=== PATIENT | female | born 1995 | race Caucasian/White ===

== ENCOUNTER 2024-04-19 18:05 | Observation (INO) ==
--- NOTE | 2024-04-19 18:53 | ED.ABDFE ---
HPI <Pro Groderian - Last Filed: 04/24/24 08:54> Time Seen Time Seen by Provider: 04/19/24 18:53 PCP Primary Care Physician: JOSEPH Complaint Doctors Chief Complaint Comments: 28-year-old female presents for evaluation. Patient has been having recurrent upper abdominal pain over the past 7 months, since the delivery of her last baby. Pain located in the right upper quadrant/epigastric region. It is sharp at times. Occurs with eating, sometimes occurs with not eating. Pain is worsened today, she has not eaten much of anything.. It is associated with nausea and vomiting today. She also has slight diarrhea today. Stools are brown. No report of fever or chills.. Pain is associated with diaphoresis. Denies upper respiratory symptoms, cough. Urine appears concentrated today.. Patient has been investigated in the recent past, had an ultrasound and HIDA scan of the gallbladder which were reportedly negative. No previous history of abdominal surgery. Did try Mounjaro, approximate 4 years ago for short time. Has not noticed significant change in weight gain. Has been on Lexapro for several years, no change in that. Is also on thyroid supplementation. Chief Complaint:: pt c/o abd pain x 7 months has had multiple er visit at [facility] had hida scan and us but pt wants to find out whats wrong with her ruq pain" Reviewed Nurses Notes Review: Yes Source History Provided: Patient Mode of arrival Mode of Arrival: Ambulatory Timing Onset of Chief Complaint: 04/19/24 PMH <Pro Groderian - Last Filed: 04/24/24 08:54> PMH Past Medical History: Yes Past Medical History: GERD, Hypertension and Hypothyroidism Past Surgical History: Yes Surgical History: Tonsillectomy Family History History of Family Medical Conditions: Yes Social History Does patient currently use any type of tobacco product: No Have you used tobacco products in the last 12 months: No Type of Tobacco Use: None Does any household member use tobacco: No Alcohol Use: None Do you use any recreational Drugs:: No Lives With: Family Lives Where: Home Infectious screening In the last 2 months have you had wt loss of >10#?: NO Have you had fever, night sweats or hemotysis?: No Have you traveled outside the country in the last 6 months?: No Isolation: Standard ROS <Pro Desai - Last Filed: 04/24/24 08:54> Review of Systems Constitutional: Weakness Eyes: No Symptoms Reported ENTM: No Symptoms Reported Respiratoy: No Symptoms Reported Cardiovascular: No Symptoms Reported Gastrointestinal/Abdominal: See HPI Genitourinary: No Symptoms Reported Neurological: Weakness Musculoskeletal: No Symptoms Reported Integumentary: No Symptoms Reported Hematologic/Lymphatic: No Symptoms Reported All Other Systems: Reviewed and Negative PE <Pro Desai - Last Filed: 04/24/24 08:54> Vital Signs Vitals: Vital Signs Temperature 97.6 F Pulse Rate 62 Respiratory Rate 18 Blood Pressure 171/72 O2 Sat by Pulse Oximetry 99 General General Appearance: Alert, In No Apparent Distress and Other (+ dry heaving) Eyes Eye exam: PERRL and EOMI ENT ENT Exam: Normal Oropharynx and Mucous Membranes Moist Neck Neck Exam: Normal Inspection and Full ROM; negative Tenderness Respiratory Respiratory Exam: Normal Lung Sounds Bilat; negative Accessory Muscle Use or Respiratory Distress Cardiovascular Cardiovascular Exam: Regular Rate, Normal Rhythm and Normal Heart Sounds Abdominal Exam Abdominal Exam: Normal Bowel Sounds, Soft and Tenderness (RUQ, epigastric region, mild guarding. ) Back Back Exam: Normal Inspection; negative (R) CVA Tenderness or (L) CVA Tenderness Extremeties Extremities Exam: Normal Inspection and Full ROM Neurologic Neurological Exam: Alert, Oriented X3 and CN II-XII Intact; negative Motor Sensory Deficit Skin Skin Exam: Warm and Dry <Lizetteigor Ling - Last Filed: 04/19/24 22:24> Vital Signs Vitals: Vital Signs Temperature 97.6 F Pulse Rate 62 Respiratory Rate 18 Blood Pressure 171/72 O2 Sat by Pulse Oximetry 99 COURSE <Pro Desai - Last Filed: 04/24/24 08:54> Treatment Treatment: 28-year-old female with recurrent upper abdominal pain, nausea/vomiting over the past several months. Workup initiated. Patient given IV fluids, IV Protonix/Zofran. Patient will be signed over to my relief physician. <Lizette Ling - Last Filed: 04/19/24 22:24> Consultation Call Returned: 21:57 (Dr Spangler accepts admission.) ROR <Pro Desai - Last Filed: 04/24/24 08:54> Labs Reviewed 04/21/24 08:00 04/21/24 08:00 Laboratory: WBC 9.6 X10^3/uL (3.6-10.0) 04/19/24 19:42 RBC 5.35 X10^6/uL (3.5-5.4) 04/19/24 19:42 Hgb 12.1 g/dL (12.0-16.0) 04/19/24 19:42 Hct 38.4 % (36.0-47.0) 04/19/24 19:42 MCV 71.7 fL (80.0-100.0) L 04/19/24 19:42 MCH 22.7 pg (27.0-34.0) L 04/19/24 19:42 MCHC 31.7 g/dL (33.0-35.0) L 04/19/24 19:42 RDW 17.5 % (11.6-16.5) H 04/19/24 19:42 Plt Count 291 X10^3/uL (150.0-450.0) 04/19/24 19:42 Plt Count Comment Adequate (ADEQUATE) 04/19/24 19:42 MPV 8.9 fL (7.4-11.0) 04/19/24 19:42 Neut % (Auto) 76.9 % (42.0-75.0) H 04/19/24 19:42 Lymph % (Auto) 14.8 % (21.0-51.0) L 04/19/24 19:42 [place] % (Auto) 6.2 % (0.0-13.0) 04/19/24 19:42 Eos % (Auto) 1.2 % (0.9-2.9) 04/19/24 19:42 Baso % (Auto) 0.9 % (0.2-1.0) 04/19/24 19:42 Neut # (Auto) 7.3 x10^3/uL (2.2-4.8) H 04/19/24 19:42 Lymph # (Auto) 1.4 X10^3/uL (1.3-2.9) 04/19/24 19:42 [place] # (Auto) 0.6 x10^3/uL (0.3-0.8) 04/19/24 19:42 Eos # (Auto) 0.1 x10^3/uL (0.0-0.2) 04/19/24 19:42 Baso # (Auto) 0.1 X10^3/uL (0.0-0.1) 04/19/24 19:42 Absolute Nucleated RBC 0.2 /100WBC 04/19/24 19:42 Plt Morphology Comment Normal (NORMAL) 04/19/24 19:42 RBC Morphology Abnormal (NORMAL) A 04/19/24 19:42 Hypochromasia 2+ A 04/19/24 19:42 Anisocytosis Slight A 04/19/24 19:42 Microcytosis Slight A 04/19/24 19:42 Sodium 141 mmol/L (136-145) 04/19/24 19:42 Corrected Sodium TNP 04/19/24 19:42 Potassium 3.6 mmol/L (3.5-5.1) 04/19/24 19:42 Chloride 102 mmol/L (98-107) 04/19/24 19:42 Carbon Dioxide 30.4 mmol/L (21-32) 04/19/24 19:42 BUN 9 mg/dL (7-18) 04/19/24 19:42 Creatinine 0.93 mg/dL (0.55-1.02) 04/19/24 19:42 Est GFR (MDRD) Af Amer > 60 (>60) 04/19/24 19:42 Est GFR (MDRD) Non-Af > 60 (>60) 04/19/24 19:42 Glucose 97 mg/dL (65-99) 04/19/24 19:42 Calcium 9.0 mg/dL (8.5-10.1) 04/19/24 19:42 Corrected Calcium TNP 04/19/24 19:42 Total Bilirubin 3.60 mg/dL (0.2-1.0) H 04/19/24 19:42 AST 556 Units/L (15-37) H 04/19/24 19:42 ALT 547 Units/L (12-78) H 04/19/24 19:42 Alkaline Phosphatase 141 Units/L (46-116) H 04/19/24 19:42 Total Protein 7.6 g/dL (6.4-8.2) 04/19/24 19:42 Albumin 3.7 g/dL (3.4-5.0) 04/19/24 19:42 Globulin 3.9 g/dL (2.5-4.5) 04/19/24 19:42 Albumin/Globulin Ratio 0.9 Ratio (1.1-2.1) L 04/19/24 19:42 Amylase 16 Units/L (25-115) L 04/19/24 19:42 Lipase 19 Units/L (16-77) 04/19/24 19:42 HCG, Qual Negative <10 mIU/mL 04/19/24 19:42 Specimen Type Clean catch urine 04/19/24 19:40 Urine Color Nubia (YELLOW) 04/19/24 19:40 Urine Appearance Hazy (CLEAR) 04/19/24 19:40 Urine pH 7.0 (5.0 - 8.0) 04/19/24 19:40 Ur Specific [place] 1.010 (1.000-1.030) 04/19/24 19:40 Urine Protein 2+ (NEGATIVE) 04/19/24 19:40 Urine Glucose (UA) Negative (NEGATIVE) 04/19/24 19:40 Urine Ketones 1+ (NEGATIVE) 04/19/24 19:40 Urine Blood Negative (NEGATIVE) 04/19/24 19:40 Urine Nitrite Negative (NEGATIVE) 04/19/24 19:40 Urine Bilirubin 2+ (NEGATIVE) 04/19/24 19:40 Urine Urobilinogen 2+ (NORMAL) 04/19/24 19:40 Ur Leukocyte Esterase 2+ (NEGATIVE) 04/19/24 19:40 Urine RBC 0-2 /HPF (0-3) 04/19/24 19:40 Urine WBC 10-20 /HPF (0-5) A 04/19/24 19:40 Ur Squamous Epith Cells Numerous /HPF (NEGATIVE) 04/19/24 19:40 Urine Bacteria 3+ /HPF (NEGATIVE) 04/19/24 19:40 Urine Mucus Numerous /HPF (NEGATIVE) 04/19/24 19:40 Ur Culture Indicated? No/not indicated 04/19/24 19:40 <Lizette Ling - Last Filed: 04/19/24 22:24> Labs Reviewed Laboratory Results Reviewed?: Yes Laboratory: WBC 9.6 X10^3/uL (3.6-10.0) 04/19/24 19:42 RBC 5.35 X10^6/uL (3.5-5.4) 04/19/24 19:42 Hgb 12.1 g/dL (12.0-16.0) 04/19/24 19:42 Hct 38.4 % (36.0-47.0) 04/19/24 19:42 MCV 71.7 fL (80.0-100.0) L 04/19/24 19:42 MCH 22.7 pg (27.0-34.0) L 04/19/24 19:42 MCHC 31.7 g/dL (33.0-35.0) L 04/19/24 19:42 RDW 17.5 % (11.6-16.5) H 04/19/24 19:42 Plt Count 291 X10^3/uL (150.0-450.0) 04/19/24 19:42 Plt Count Comment Adequate (ADEQUATE) 04/19/24 19:42 MPV 8.9 fL (7.4-11.0) 04/19/24 19:42 Neut % (Auto) 76.9 % (42.0-75.0) H 04/19/24 19:42 Lymph % (Auto) 14.8 % (21.0-51.0) L 04/19/24 19:42 [place] % (Auto) 6.2 % (0.0-13.0) 04/19/24 19:42 Eos % (Auto) 1.2 % (0.9-2.9) 04/19/24 19:42 Baso % (Auto) 0.9 % (0.2-1.0) 04/19/24 19:42 Neut # (Auto) 7.3 x10^3/uL (2.2-4.8) H 04/19/24 19:42 Lymph # (Auto) 1.4 X10^3/uL (1.3-2.9) 04/19/24 19:42 [place] # (Auto) 0.6 x10^3/uL (0.3-0.8) 04/19/24 19:42 Eos # (Auto) 0.1 x10^3/uL (0.0-0.2) 04/19/24 19:42 Baso # (Auto) 0.1 X10^3/uL (0.0-0.1) 04/19/24 19:42 Absolute Nucleated RBC 0.2 /100WBC 04/19/24 19:42 Plt Morphology Comment Normal (NORMAL) 04/19/24 19:42 RBC Morphology Abnormal (NORMAL) A 04/19/24 19:42 Hypochromasia 2+ A 04/19/24 19:42 Anisocytosis Slight A 04/19/24 19:42 Microcytosis Slight A 04/19/24 19:42 Sodium 141 mmol/L (136-145) 04/19/24 19:42 Corrected Sodium TNP 04/19/24 19:42 Potassium 3.6 mmol/L (3.5-5.1) 04/19/24 19:42 Chloride 102 mmol/L (98-107) 04/19/24 19:42 Carbon Dioxide 30.4 mmol/L (21-32) 04/19/24 19:42 BUN 9 mg/dL (7-18) 04/19/24 19:42 Creatinine 0.93 mg/dL (0.55-1.02) 04/19/24 19:42 Est GFR (MDRD) Af Amer > 60 (>60) 04/19/24 19:42 Est GFR (MDRD) Non-Af > 60 (>60) 04/19/24 19:42 Glucose 97 mg/dL (65-99) 04/19/24 19:42 Calcium 9.0 mg/dL (8.5-10.1) 04/19/24 19:42 Corrected Calcium TNP 04/19/24 19:42 Total Bilirubin 3.60 mg/dL (0.2-1.0) H 04/19/24 19:42 AST 556 Units/L (15-37) H 04/19/24 19:42 ALT 547 Units/L (12-78) H 04/19/24 19:42 Alkaline Phosphatase 141 Units/L (46-116) H 04/19/24 19:42 Total Protein 7.6 g/dL (6.4-8.2) 04/19/24 19:42 Albumin 3.7 g/dL (3.4-5.0) 04/19/24 19:42 Globulin 3.9 g/dL (2.5-4.5) 04/19/24 19:42 Albumin/Globulin Ratio 0.9 Ratio (1.1-2.1) L 04/19/24 19:42 Amylase 16 Units/L (25-115) L 04/19/24 19:42 Lipase 19 Units/L (16-77) 04/19/24 19:42 HCG, Qual Negative <10 mIU/mL 04/19/24 19:42 Specimen Type Clean catch urine 04/19/24 19:40 Urine Color Nubia (YELLOW) 04/19/24 19:40 Urine Appearance Hazy (CLEAR) 04/19/24 19:40 Urine pH 7.0 (5.0 - 8.0) 04/19/24 19:40 Ur Specific [place] 1.010 (1.000-1.030) 04/19/24 19:40 Urine Protein 2+ (NEGATIVE) 04/19/24 19:40 Urine Glucose (UA) Negative (NEGATIVE) 04/19/24:40 Urine Ketones 1+ (NEGATIVE) 04/19/24 19:40 Urine Blood Negative (NEGATIVE) 04/19/24:40 Urine Nitrite Negative (NEGATIVE) 04/19/24 19:40 Urine Bilirubin 2+ (NEGATIVE) 04/19/24 19:40 Urine Urobilinogen 2+ (NORMAL) 04/19/24 19:40 Ur Leukocyte Esterase 2+ (NEGATIVE) 04/19/24 19:40 Urine RBC 0-2 /HPF (0-3) 04/19/24 19:40 Urine WBC 10-20 /HPF (0-5) A 04/19/24 19:40 Ur Squamous Epith Cells Numerous /HPF (NEGATIVE) 04/19/24 19:40 Urine Bacteria 3+ /HPF (NEGATIVE) 04/19/24 19:40 Urine Mucus Numerous /HPF (NEGATIVE) 04/19/24 19:40 Ur Culture Indicated? No/not indicated 04/19/24 19:40 Other Results Comments: 28 y/o with seven months of intermittent epigastric pain, nausea and vomiting; US and HIDA about four months ago reportedly wnl but symptoms persist; significantly elevated lfts and bilirubin; unable to get us tonight; surgeon is agreeable to admission for observation. XRAY XRAY Interpreted by: Radiologist X-ray Results: abd/pelvis w/iv: 1. Cholelithiasis. There is questionably some gallbladder wall thickening. Consider correlation with right upper quadrant ultrasound. 2. Splenomegaly. Opioid <Pro Lloyd - Last Filed: 04/24/24 08:54> Opioid Risk Tool Total: 0 Total Score Risk Category: Low Risk Copyright: Bucky ANDUJAR predicting aberrant behaviors <Lizette Ling - Last Filed: 04/19/24 22:24> Opioid Risk Tool Total: 0 Total Score Risk Category: Low Risk Discharge Plan Diagnosis Discharge Problem: Cholelithiasis, Elevated LFTs, Total bilirubin, elevated, Nausea & vomiting, Acute epigastric pain, Splenomegaly Discharge Plan Patient Disposition: 09 ADMITTED INPATIENT Condition: Stable Prescription drug monitoring program results: PDMP reviewed and no concerns identified Orders to Discharge Patient Discharge Orders: Discharge (Routine); Ordered 04/21/24 Ordered By: Laureano Spangler
[2024-04-19] MEDS: NS 1,000 ML IV 1,000 ML IV ONE (19:48)
[2024-04-19] MEDS: PROTONIX INJ 40 MG VIAL IVP ONE (19:49)
[2024-04-19] MEDS: ZOFRAN INJ 4 MG VIAL IVP ONE (19:49)
[2024-04-19 19:50] LABS: BASOPHILS # (AUTO) 0.1 X10^3/uL (0.0-0.1); BASOPHILS % (AUTO) 0.9 % (0.2-1.0); EOSINOPHILS # (AUTO) 0.1 x10^3/uL (0.0-0.2); EOSINOPHILS % (AUTO) 1.2 % (0.9-2.9); HEMATOCRIT 38.4 % (36.0-47.0); HEMOGLOBIN 12.1 g/dL (12.0-16.0); LYMPHOCYTES # (AUTO) 1.4 X10^3/uL (1.3-2.9); LYMPHOCYTES % (AUTO) 14.8 % (21.0-51.0); MEAN CORPUSCULAR HEMOGLOBIN 22.7 pg (27.0-34.0); MEAN CORPUSCULAR HGB CONC 31.7 g/dL (33.0-35.0); MEAN CORPUSCULAR VOLUME 71.7 fL (80.0-100.0); MEAN PLATELET VOLUME 8.9 fL (7.4-11.0); MONOCYTES # (AUTO) 0.6 x10^3/uL (0.3-0.8); MONOCYTES % (AUTO) 6.2 % (0.0-13.0); NEUTROPHILS # (AUTO) 7.3 x10^3/uL (2.2-4.8); NEUTROPHILS % (AUTO) 76.9 % (42.0-75.0); PLATELET COUNT 291 X10^3/uL (150.0-450.0); RED BLOOD COUNT 5.35 X10^6/uL (3.5-5.4); RED CELL DISTRIBUTION WIDTH 17.5 % (11.6-16.5); WHITE BLOOD COUNT 9.6 X10^3/uL (3.6-10.0)
[2024-04-19 19:51] LABS: BILIRUBIN,URINE 2+ (NEGATIVE); BLOOD/HEMOGLOBIN,URINE NEGATIVE (NEGATIVE); GLUCOSE, URINE NEGATIVE (NEGATIVE); KETONES,URINE 1+ (NEGATIVE); LEUKOCYTE ESTERASE ,URINE 2+ (NEGATIVE); NITRITES,URINE NEGATIVE (NEGATIVE); PROTEIN,URINE 2+ (NEGATIVE); UROBILINOGEN,URINE 2+ (NORMAL)
[2024-04-19 20:02] LABS: SERUM PREGNANCY TEST, QUAL NEGATIVE <10 mIU/mL
[2024-04-19 20:05] LABS: ALANINE AMINOTRANSFERASE 547 Units/L (12-78); ALBUMIN 3.7 g/dL (3.4-5.0); ALKALINE PHOSPHATASE 141 Units/L (46-116); AMYLASE 16 Units/L (25-115); ASPARTATE AMINO TRANSFERASE 556 Units/L (15-37); BLOOD UREA NITROGEN 9 mg/dL (7-18); CARBON DIOXIDE 30.4 mmol/L (21-32); CHLORIDE 102 mmol/L (98-107); CREATININE 0.93 mg/dL (0.55-1.02); GLUCOSE 97 mg/dL (65-99); LIPASE 19 Units/L (16-77); POTASSIUM 3.6 mmol/L (3.5-5.1); SODIUM 141 mmol/L (136-145); TOTAL PROTEIN 7.6 g/dL (6.4-8.2); eGFR NON BLACK RACES > 60 (>60)
[2024-04-19 20:18] LABS: ANISOCYTOSIS SLIGHT; HYPOCHROMASIA 2+; MICROCYTOSIS SLIGHT; PLATELET MORPHOLOGY COMMENT NORMAL (NORMAL)
[2024-04-19 21:15] LABS: APPEARANCE,URINE HAZY (CLEAR); COLOR,URINE AMBER (YELLOW)
[2024-04-19 21:18] LABS: BACTERIA,URINE 3+ /HPF (NEGATIVE); RBC,URINE 0-2 /HPF (0-3); SQUAMOUS EPITHELIAL CELL,UR NUMEROUS /HPF (NEGATIVE)
--- NOTE | 2024-04-19 21:37 | CT ---
EXAM: ABDCMEN/PELVIS WITH CON HISTORY: epigastric pain; COMPARISON: None. TECHNIQUE: Following the intravenous administration of iodinated contrast, spiral CT imaging was performed throu gh the abdomen and pelvis and axial, coronal, and sagittal CT images were generated. FINDINGS: The lung bases are clear without effusion. The heart size is normal. The liver is normal. The gall bladder is somewhat distended there are some stones in the fundus and questionably some wall thickeni ng. No ductal stone is identified. Pancreas is unremarkable. Spleen is enlarged at 15.6 cm. The a drenal glands are normal. The kidneys are normal in size and enhancement without mass or stone. The stomach and small bowel loops are normal. The appendix is normal. There are reactive sized mesente daiana lymph nodes. Colon is grossly unremarkable. Urinary bladder and uterus are normal and there is no adnexal mass. There are reactive sized mesenteric and retroperitoneal lymph nodes. IMPRESSION: 1. Cholelithiasis. There is questionably some gallbladder wall thickening. Consider correlation wit h right upper quadrant ultrasound. 2. Splenomegaly. THIS IS AN ELECTRONICALLY VERIFIED FINAL REPORT 04/19/2024 9:34 PM - Electronically signed by Roby Barker MD
[2024-04-19] MEDS ORDERED: ZOFRAN INJ 4 MG VIAL IVP PRN (21:58)
[2024-04-19] MEDS ORDERED: MORPHINE SULFATE INJ 2 MG INJ IVP PRN (21:58)
[2024-04-19] MEDS: NS 1,000 ML IV 1,000 ML IV SCH (22:06)
[2024-04-19] MEDS: LEVAQUIN PREMIX IV 500 MG 500 MG/100 ML BAG IV ONE ×2 (22:06→23:07)
[2024-04-19] MEDS: PROTONIX INJ 40 MG VIAL ONE (23:08)
[2024-04-19] MEDS: OMNIPAQUE 350 mg/mL 100 mL BTL 100 ML ONE (23:09)
[2024-04-19] MEDS: NS 1,000 ML IV 1,000 ML ONE ×2 (23:09)
[2024-04-19] MEDS: ZOFRAN INJ 4 MG VIAL ONE (23:09)
[2024-04-19 23:21] VITALS: BMI 56.3
[2024-04-20] MEDS: NS 1,000 ML IV 1,000 ML IV SCH (00:25)
[2024-04-20 05:35] LABS: BASOPHILS % (AUTO) 0.6 % (0.2-1.0); EOSINOPHILS # (AUTO) 0.2 x10^3/uL (0.0-0.2); EOSINOPHILS % (AUTO) 2.4 % (0.9-2.9); HEMATOCRIT 33.5 % (36.0-47.0); HEMOGLOBIN 10.6 g/dL (12.0-16.0); LYMPHOCYTES # (AUTO) 1.8 X10^3/uL (1.3-2.9); LYMPHOCYTES % (AUTO) 27.8 % (21.0-51.0); MEAN CORPUSCULAR HEMOGLOBIN 22.9 pg (27.0-34.0); MEAN CORPUSCULAR HGB CONC 31.7 g/dL (33.0-35.0); MEAN PLATELET VOLUME 9.5 fL (7.4-11.0); MONOCYTES # (AUTO) 0.4 x10^3/uL (0.3-0.8); MONOCYTES % (AUTO) 5.5 % (0.0-13.0); NEUTROPHILS # (AUTO) 4.2 x10^3/uL (2.2-4.8); NEUTROPHILS % (AUTO) 63.7 % (42.0-75.0); PLATELET COUNT 219 X10^3/uL (150.0-450.0); RED BLOOD COUNT 4.64 X10^6/uL (3.5-5.4); RED CELL DISTRIBUTION WIDTH 17.7 % (11.6-16.5); WHITE BLOOD COUNT 6.6 X10^3/uL (3.6-10.0)
[2024-04-20 05:54] LABS: ANISOCYTOSIS SLIGHT; HYPOCHROMASIA 1+; MICROCYTOSIS SLIGHT; PLATELET MORPHOLOGY COMMENT NORMAL (NORMAL)
[2024-04-20 05:56] LABS: ALANINE AMINOTRANSFERASE 520 Units/L (12-78); ALBUMIN 2.9 g/dL (3.4-5.0); ALKALINE PHOSPHATASE 131 Units/L (46-116); ASPARTATE AMINO TRANSFERASE 422 Units/L (15-37); BLOOD UREA NITROGEN 8 mg/dL (7-18); CALCIUM 8.3 mg/dL (8.5-10.1); CARBON DIOXIDE 28.3 mmol/L (21-32); CHLORIDE 106 mmol/L (98-107); COR CA(FOR HYPOALB) 9.2 mg/dL (8.5-10.1); CREATININE 0.83 mg/dL (0.55-1.02); GLUCOSE 85 mg/dL (65-99); POTASSIUM 3.6 mmol/L (3.5-5.1); SODIUM 141 mmol/L (136-145); TOTAL PROTEIN 6.2 g/dL (6.4-8.2); eGFR NON BLACK RACES > 60 (>60)
[2024-04-20] MEDS ORDERED: CONSULT PHARMACY - POTASSIUM & MAGNESIUM XX SCH (07:00)
[2024-04-20] MEDS: CONSULT PHARMACY - POTASSIUM & MAGNESIUM XX SCH (08:06)
[2024-04-20] MEDS ORDERED: K-RIDER 10 MEQ/100 ML WATER 10 MEQ/100 ML BAG IV SCH (09:00)
[2024-04-20] MEDS: NS + KCL 20 MEQ/L 1,000 ML IV SCH (09:30)
[2024-04-20] MEDS: NS 100 ML IV 100 ML ONE (15:20)
[2024-04-20] MEDS: LR 1,000 ML IV 1,000 ML IV ONE (15:20)
[2024-04-20] MEDS: ANCEF VIAL 1 GRAM ONE (15:20)
--- NOTE | 2024-04-20 15:22 | DR.H&P ---
H&P History & Physical for Day of: H&P Date: 04/20/24 Chief Complaint Chief Complaint: Right upper quadrant pain, nausea and vomiting History of Present Illness History of Present Illness: 28 year old female, morbidly obese with 7-month history of significant right upper quadrant and epigastric pain. This has occurred since delivery of her last baby about 7 months ago. She has been evaluated with a HIDA scan in [place], [place] which was reported as negative. She was seen our emergency room and CT scan consistent with gallstones with dilated gallbladder and possible gallbladder wall thickening . On admission her liver tests are elevated as was her total Herb Jacob to 3.6. CT scan did not show any evidence of dilated common duct or common duct Stones. Bilirubin has since decreased to 3.0. Past Medical History Past Medical History: GERD, Hypertension and Hypothyroidism Past Surgical History Surgical History: Tonsillectomy Family History Family Medical History: Hypertension Social History Does patient currently use any type of tobacco product: No Have you used tobacco products in the last 12 months: No Type of Tobacco Use: None Does any household member use tobacco: No Alcohol Use: None Drug Use: None Medications Home Medications: Home Medications Medication Instructions Recorded Confirmed Type escitalopram oxalate 10 mg tablet 10 mg PO QDAY 04/19/24 04/19/24 History labetalol 100 mg tablet 100 mg PO QDAY 04/19/24 04/19/24 History levothyroxine 50 mcg tablet 50 mcg PO QDAY 04/19/24 04/19/24 History montelukast 10 mg tablet 10 mg PO QDAY 04/19/24 04/19/24 History Allergies Allergies Allergy/AdvReac Type Severity Reaction Status Date / Time No Known Allergies Allergy Verified 04/19/24 21:33 Labs 04/20/24 04:03 04/20/24 04:03 Labs: Laboratory WBC 6.6 X10^3/uL (3.6-10.0) 04/20/24 04:03 RBC 4.64 X10^6/uL (3.5-5.4) 04/20/24 04:03 Hgb 10.6 g/dL (12.0-16.0) L 04/20/24 04:03 Hct 33.5 % (36.0-47.0) L 04/20/24 04:03 MCV 72.0 fL (80.0-100.0) L 04/20/24 04:03 MCH 22.9 pg (27.0-34.0) L 04/20/24 04:03 MCHC 31.7 g/dL (33.0-35.0) L 04/20/24 04:03 RDW 17.7 % (11.6-16.5) H 04/20/24 04:03 Plt Count 219 X10^3/uL (150.0-450.0) 04/20/24 04:03 Plt Count Comment Adequate (ADEQUATE) 04/20/24 04:03 MPV 9.5 fL (7.4-11.0) 04/20/24 04:03 Neut % (Auto) 63.7 % (42.0-75.0) 04/20/24 04:03 Lymph % (Auto) 27.8 % (21.0-51.0) 04/20/24 04:03 [place] % (Auto) 5.5 % (0.0-13.0) 04/20/24 04:03 Eos % (Auto) 2.4 % (0.9-2.9) 04/20/24 04:03 Baso % (Auto) 0.6 % (0.2-1.0) 04/20/24 04:03 Neut # (Auto) 4.2 x10^3/uL (2.2-4.8) 04/20/24 04:03 Lymph # (Auto) 1.8 X10^3/uL (1.3-2.9) 04/20/24 04:03 [place] # (Auto) 0.4 x10^3/uL (0.3-0.8) 04/20/24 04:03 Eos # (Auto) 0.2 x10^3/uL (0.0-0.2) 04/20/24 04:03 Baso # (Auto) 0.0 X10^3/uL (0.0-0.1) 04/20/24 04:03 Absolute Nucleated RBC 0.0 /100WBC 04/20/24 04:03 Plt Morphology Comment Normal (NORMAL) 04/20/24 04:03 RBC Morphology Abnormal (NORMAL) A 04/20/24 04:03 Hypochromasia 1+ A 04/20/24 04:03 Anisocytosis Slight A 04/20/24 04:03 Microcytosis Slight A 04/20/24 04:03 Sodium 141 mmol/L (136-145) 04/20/24 04:03 Corrected Sodium TNP 04/20/24 04:03 Potassium 3.6 mmol/L (3.5-5.1) 04/20/24 04:03 Chloride 106 mmol/L (98-107) 04/20/24 04:03 Carbon Dioxide 28.3 mmol/L (21-32) 04/20/24 04:03 BUN 8 mg/dL (7-18) 04/20/24 04:03 Creatinine 0.83 mg/dL (0.55-1.02) 04/20/24 04:03 Est GFR (MDRD) Af Amer > 60 (>60) 04/20/24 04:03 Est GFR (MDRD) Non-Af > 60 (>60) 04/20/24 04:03 Glucose 85 mg/dL (65-99) 04/20/24 04:03 Calcium 8.3 mg/dL (8.5-10.1) L 04/20/24 04:03 Corrected Calcium 9.2 mg/dL (8.5-10.1) 04/20/24 04:03 Magnesium 2.1 mg/dL (2.0-2.9) 04/20/24 04:03 Total Bilirubin 3.00 mg/dL (0.2-1.0) H 04/20/24 04:03 AST 422 Units/L (15-37) H 04/20/24 04:03 ALT 520 Units/L (12-78) H 04/20/24 04:03 Alkaline Phosphatase 131 Units/L (46-116) H 04/20/24 04:03 Total Protein 6.2 g/dL (6.4-8.2) L 04/20/24 04:03 Albumin 2.9 g/dL (3.4-5.0) L 04/20/24 04:03 Globulin 3.3 g/dL (2.5-4.5) 04/20/24 04:03 Albumin/Globulin Ratio 0.9 Ratio (1.1-2.1) L 04/20/24 04:03 Amylase 16 Units/L (25-115) L 04/19/24 19:42 Lipase 19 Units/L (16-77) 04/19/24 19:42 HCG, Qual Negative <10 mIU/mL 04/19/24 19:42 Specimen Type Clean catch urine 04/19/24 19:40 Urine Color [place]ubia (YELLOW) 04/19/24 19:40 Urine Appearance Hazy (CLEAR) 04/19/24 19:40 Urine pH 7.0 (5.0 - 8.0) 04/19/24 19:40 Ur Specific [place] 1.010 (1.000-1.030) 04/19/24 19:40 Urine Protein 2+ (NEGATIVE) 04/19/24 19:40 Urine Glucose (UA) Negative (NEGATIVE) 04/19/24 19:40 Urine Ketones 1+ (NEGATIVE) 04/19/24 19:40 Urine Blood Negative (NEGATIVE) 04/19/24 19:40 Urine Nitrite Negative (NEGATIVE) 04/19/24 19:40 Urine Bilirubin 2+ (NEGATIVE) 04/19/24 19:40 Urine Urobilinogen 2+ (NORMAL) 04/19/24 19:40 Ur Leukocyte Esterase 2+ (NEGATIVE) 04/19/24 19:40 Urine RBC 0-2 /HPF (0-3) 04/19/24 19:40 Urine WBC 10-20 /HPF (0-5) A 04/19/24 19:40 Ur Squamous Epith Cells Numerous /HPF (NEGATIVE) 04/19/24 19:40 Urine Bacteria 3+ /HPF (NEGATIVE) 04/19/24 19:40 Urine Mucus Numerous /HPF (NEGATIVE) 04/19/24 19:40 Ur Culture Indicated? No/not indicated 04/19/24 19:40 Review of Systems Constitutional: See HPI Eyes: Other (No obvious icterus ) ENT: No Symptoms Reported Respiratory: No Symptoms Reported Cardiovascular: No Symptoms Reported Gastrointestinal: See HPI Genitourinary: No Symptoms Reported Musculoskeletal: No Symptoms Reported Skin: No Symptoms Reported Neurological: No Symptoms Reported Physical Exam Vital Signs: Vital Signs Temperature 98.5 F Pulse Rate 62 Pulse Rate 46 Pulse Rate 46 Pulse Rate 48 Pulse Rate 54 Pulse Rate 59 Pulse Rate 58 Pulse Rate 48 Pulse Rate 57 Pulse Rate 55 Pulse Rate 50 Respiratory Rate 18 Respiratory Rate 18 Respiratory Rate 18 Respiratory Rate 19 Respiratory Rate 18 Respiratory Rate 14 Respiratory Rate 23 Respiratory Rate 14 Respiratory Rate 13 Respiratory Rate 19 Respiratory Rate 18 Blood Pressure 138/64 Blood Pressure 108/63 Blood Pressure 123/61 Blood Pressure 133/64 Blood Pressure 113/55 Blood Pressure 127/61 O2 Sat by Pulse Oximetry 100 O2 Sat by Pulse Oximetry 100 O2 Sat by Pulse Oximetry 100 O2 Sat by Pulse Oximetry 100 O2 Sat by Pulse Oximetry 100 O2 Sat by Pulse Oximetry 100 O2 Sat by Pulse Oximetry 100 O2 Sat by Pulse Oximetry 100 O2 Sat by Pulse Oximetry 99 O2 Sat by Pulse Oximetry 99 O2 Sat by Pulse Oximetry 99 Oriented: Normal, Time, Person and Place Eyes: Normal Ear: Normal Nose: Normal Throat: Normal Respiratory: Clear Throughout Cardiovascular: Normal : Normal Auscultation: Bowel Sounds: Normal Palpation: Normal Tenderness: RUQ (mild) Skin: Normal Musculoskeletal: Normal Psychiatric: Normal Mood Description: Calm Affect: Normal Speech Pattern: Clear and Appropriate Assessment/Plan (1) Cholelithiasis: Status: Acute Plan: plan laparoscopic cystectomy and cholangiogram . Risk and benefits discussed with the patient including the small percentage of having to convert to an open operation and the 1 in 2000 chance of bile duct injury in my hands. she understands and agrees to proceed . (2) Elevated LFTs: Status: Acute Plan: Cholangiogram, treat appropriately and follow (3) Total bilirubin, elevated: Status: Acute Plan: as above (4) Nausea & vomiting: Status: Acute Plan: treat symptomatically (5) Hypothyroid: Status: Acute Plan: home medications (6) GERD (gastroesophageal reflux disease): Status: Acute Plan: PO Protonix (7) Essential (primary) hypertension: Status: Acute Plan: home medications Review H&P Reviewed: Yes Patient was examined?: Yes
[2024-04-20] MEDS ORDERED: REGLAN INJ 10 MG VIAL IVP PRN (15:23)
[2024-04-20] MEDS ORDERED: BARHEMSYS INJ IVP PRN (15:23)
[2024-04-20] MEDS ORDERED: ZOFRAN INJ 4 MG VIAL IVP PRN (15:23)
[2024-04-20] MEDS ORDERED: BENADRYL INJ 50 MG VIAL IVP PRN (15:23)
[2024-04-20] MEDS: PRECEDEX INJ VIAL ONE (15:30)
[2024-04-20] MEDS ORDERED: SUPRANE ONE (15:30)
[2024-04-20] MEDS: FENTANYL VIAL INJ 250 mcg ONE (15:30)
[2024-04-20] MEDS: ZEMURON 100 MG VIAL ONE (15:30)
[2024-04-20] MEDS: PEPCID 20 MG VIAL ONE (15:30)
[2024-04-20] MEDS: ROBINUL ONE (15:30)
[2024-04-20] MEDS: DECADRON INJ ONE (15:30)
[2024-04-20] MEDS: DIPRIVAN VIAL 20 ML ONE (15:30)
[2024-04-20] MEDS ORDERED: XYLOCAINE 2 % (PLAIN) ONE (15:30)
[2024-04-20] MEDS: QUELICIN (OR ANECTINE) ONE (15:30)
[2024-04-20] MEDS: VERSED ONE (15:30)
[2024-04-20] MEDS: MAGNESIUM SULFATE 50% INJ VIAL ONE (15:30)
[2024-04-20] MEDS: ZOFRAN INJ 4 MG VIAL ONE ×2 (15:30→18:09)
[2024-04-20] MEDS: VISIPAQUE 50 ML ONE (15:50)
[2024-04-20] MEDS: BRIDION ONE (16:02)
[2024-04-20] MEDS: GLUCAGEN ONE (16:33)
[2024-04-20] MEDS: DILAUDID INJ IVP PRN (17:23)
--- NOTE | 2024-04-20 17:23 | OR.IMMED ---
IMMEDIATE POST-OP NOTE Immediate Post-Op Note Date of surgery/procedure: 04/20/24 Pre-Op Diagnosis: Cholelithiasis ,cholecystitis, possible common bile duct stone Post-Op Diagnosis: same Procedure: laparoscopic cystectomy, laparoscopic cholangiogram, this is a difficult case secondary to a morBID obesity with BMI of greater than 57 Description of Procedure: see dictation Surgeon/Assembler Gold Frame: Crys Findings: inflamed, large gallbladder with multiple Stones. cholangiogram showed no emptying into the bowel with possible distal common duct stone with obstr uction. Patient will be maintained on antibiotics and will require MRCP, possible ERCP, YARELY drain left in place Specimens Removed: ministerio Estimated Blood Loss: < 100cc Complications: none Progress Notes: to PACU then to her room. Continue antibiotics. Drain in place. will schedule MRCP as outpatient
[2024-04-20] MEDS: REGLAN INJ 10 MG VIAL ONE (18:09)
[2024-04-20] MEDS: MARCAINE/EPINEPHRINE ONE (18:09)
[2024-04-20] MEDS: DILAUDID INJ ONE (18:09)
[2024-04-20] MEDS: ZOFRAN INJ 4 MG VIAL IVP PRN (18:34)
[2024-04-20] MEDS: CIPRO TAB 500 MG PO SCH (20:08)
[2024-04-20] MEDS: PERCOCET TAB 5/325 MG PO PRN (20:09)
[2024-04-21] MEDS: MORPHINE SULFATE INJ 2 MG INJ IVP PRN (01:46)
[2024-04-21 08:21] LABS: BASOPHILS # (AUTO) 0.1 X10^3/uL (0.0-0.1); BASOPHILS % (AUTO) 1.5 % (0.2-1.0); EOSINOPHILS # (AUTO) 0.1 x10^3/uL (0.0-0.2); EOSINOPHILS % (AUTO) 1.4 % (0.9-2.9); HEMATOCRIT 34.3 % (36.0-47.0); HEMOGLOBIN 10.9 g/dL (12.0-16.0); LYMPHOCYTES % (AUTO) 24.4 % (21.0-51.0); MEAN CORPUSCULAR HEMOGLOBIN 22.9 pg (27.0-34.0); MEAN CORPUSCULAR HGB CONC 31.7 g/dL (33.0-35.0); MEAN CORPUSCULAR VOLUME 72.2 fL (80.0-100.0); MONOCYTES # (AUTO) 0.3 x10^3/uL (0.3-0.8); NEUTROPHILS # (AUTO) 5.6 x10^3/uL (2.2-4.8); NEUTROPHILS % (AUTO) 68.7 % (42.0-75.0); PLATELET COUNT 235 X10^3/uL (150.0-450.0); RED BLOOD COUNT 4.76 X10^6/uL (3.5-5.4); RED CELL DISTRIBUTION WIDTH 17.2 % (11.6-16.5); WHITE BLOOD COUNT 8.1 X10^3/uL (3.6-10.0)
[2024-04-21 08:24] VITALS: TEMP 98.4; O2SAT 99
[2024-04-21 08:36] LABS: ALANINE AMINOTRANSFERASE 548 Units/L (12-78); ALKALINE PHOSPHATASE 181 Units/L (46-116); ASPARTATE AMINO TRANSFERASE 331 Units/L (15-37); BLOOD UREA NITROGEN 6 mg/dL (7-18); CALCIUM 8.3 mg/dL (8.5-10.1); CARBON DIOXIDE 26.5 mmol/L (21-32); CHLORIDE 105 mmol/L (98-107); COR CA(FOR HYPOALB) 9.1 mg/dL (8.5-10.1); CREATININE 0.84 mg/dL (0.55-1.02); GLUCOSE 92 mg/dL (65-99); POTASSIUM 4.2 mmol/L (3.5-5.1); SODIUM 142 mmol/L (136-145); TOTAL PROTEIN 6.4 g/dL (6.4-8.2); eGFR NON BLACK RACES > 60 (>60)
[2024-04-21 09:01] LABS: ANISOCYTOSIS SLIGHT; HYPOCHROMASIA 1+; MICROCYTOSIS SLIGHT; PLATELET MORPHOLOGY COMMENT NORMAL (NORMAL)
[2024-04-21 09:53] VITALS: BP 157/66; PULSE 53
[2024-04-21 11:11] VITALS: RESP 25
--- NOTE | 2024-04-21 12:41 | W.DIS.FURT ---
Summary of Discharge Discharge Summary of Date Date of Exam: 04/21/24 Admission Date Date of Admission: 04/19/24 Admission Diagnosis Patient Problems (Updated 04/20/24 @ 15:20 by Laureano Spangler) Cholelithiasis (Acute) K80.20 Elevated LFTs (Acute) R79.89 Total bilirubin, elevated (Acute) R17 Nausea & vomiting (Acute) R11.2 Acute epigastric pain (Acute) R10.13 Splenomegaly (Acute) R16.1 Hospital Course: This 28 year old female has had persistent right upper quadrant pain with nausea and vomiting for over 7 months since the of her last child. She has had evaluation in [place], [place] including ultrasound and HIDA scan which were reported by the patient to be negative. She presented to our emergency room and CT scan was consistent with cholelithisis and inflammation of the gallbladder. At that time she had elevation of bilirubin to m 3.6 but there was no ductal dilatation on the CT scan. 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 Gallbaladder was removed. cholangiogram showed questionable filling defect of the distal common bile duct with no emptying of contrast into the bowel. However her bilrubin has continued to decline and is now 2.1 . She is taking a regular diet and will be discharged at home at this time with a Yazan Yeh drain in place on , Ciiprofloxacin 500 milligrams BID d and Percocet 5 milligram tablets, 1 every 6 hours PRN pain She Will undergo MRCP on Tuesday the and see me in follow-up. Depending on the results of the MRCP she he will be referred appropriately to gastroenterologu if necessary. Vital Signs: Vital Signs (72 hours) 04/19/24 18:06 04/19/24 22:11 04/19/24 22:25 Temperature 97.6 F 97.6 F Pulse Rate 62 Pulse Rate [Right Brachial] 62 Respiratory Rate 18 18 Blood Pressure 171/72 149/73 Blood Pressure [Right Arm] 149/73 O2 Sat by Pulse Oximetry 99 99 Oxygen Delivery Method Room Air Room Air 04/19/24 23:00 04/19/24 22:55 04/20/24 00:00 Temperature 98.7 F Pulse Rate 61 55 L Pulse Rate [Right Brachial] Respiratory Rate 21 12 Blood Pressure 150/64 133/62 Blood Pressure [Right Arm] O2 Sat by Pulse Oximetry 100 100 Oxygen Delivery Method Room Air Room Air Room Air 04/20/24 01:00 04/20/24 02:00 04/20/24 03:00 Temperature Pulse Rate 56 L 53 L 55 L Pulse Rate [Right Brachial] Respiratory Rate 20 22 22 Blood Pressure 131/63 124/61 126/74 Blood Pressure [Right Arm] O2 Sat by Pulse Oximetry 100 98 97 Oxygen Delivery Method Room Air Room Air Room Air 04/20/24 04:00 04/20/24 05:00 04/20/24 06:00 Temperature 98.5 F Pulse Rate 58 L 47 L 48 L Pulse Rate [Right Brachial] Respiratory Rate 14 21 21 Blood Pressure 125/60 117/62 121/58 Blood Pressure [Right Arm] O2 Sat by Pulse Oximetry 100 98 97 Oxygen Delivery Method Room Air Room Air Room Air 04/20/24 07:00 04/20/24 07:01 04/20/24 07:01 Temperature Pulse Rate 56 L 52 L Pulse Rate [Right Brachial] Respiratory Rate 21 16 Blood Pressure 122/61 Blood Pressure [Right Arm] O2 Sat by Pulse Oximetry 97 97 Oxygen Delivery Method 04/20/24 08:00 04/20/24 08:01 04/20/24 08:01 Temperature Pulse Rate 50 L 55 L Pulse Rate [Right Brachial] Respiratory Rate 18 19 Blood Pressure 127/61 Blood Pressure [Right Arm] O2 Sat by Pulse Oximetry 99 99 Oxygen Delivery Method 04/20/24 09:00 04/20/24 09:01 04/20/24 09:01 Temperature Pulse Rate 57 L 48 L Pulse Rate [Right Brachial] Respiratory Rate 13 14 Blood Pressure 113/55 Blood Pressure [Right Arm] O2 Sat by Pulse Oximetry 99 100 Oxygen Delivery Method 04/20/24 10:00 04/20/24 10:01 04/20/24 10:01 Temperature Pulse Rate 58 L 59 L Pulse Rate [Right Brachial] Respiratory Rate 23 14 Blood Pressure 133/64 Blood Pressure [Right Arm] O2 Sat by Pulse Oximetry 100 100 Oxygen Delivery Method 04/20/24 11:00 04/20/24 11:01 04/20/24 11:01 Temperature Pulse Rate 54 L 48 L Pulse Rate [Right Brachial] Respiratory Rate 18 19 Blood Pressure 123/61 Blood Pressure [Right Arm] O2 Sat by Pulse Oximetry 100 100 Oxygen Delivery Method 04/20/24 12:00 04/20/24 12:01 04/20/24 12:01 Temperature Pulse Rate 46 L 46 L Pulse Rate [Right Brachial] Respiratory Rate 18 18 Blood Pressure 108/63 Blood Pressure [Right Arm] O2 Sat by Pulse Oximetry 100 100 Oxygen Delivery Method 04/20/24 14:45 04/20/24 13:00 04/20/24 13:01 Temperature 98.5 F Pulse Rate 62 58 L Pulse Rate [Right Brachial] Respiratory Rate 18 22 Blood Pressure 138/64 119/56 Blood Pressure [Right Arm] O2 Sat by Pulse Oximetry 100 99 Oxygen Delivery Method Room Air 04/20/24 13:01 04/20/24 14:00 04/20/24 07:00 Temperature Pulse Rate 49 L 51 L Pulse Rate [Right Brachial] Respiratory Rate 17 13 Blood Pressure Blood Pressure [Right Arm] O2 Sat by Pulse Oximetry 100 100 Oxygen Delivery Method Room Air 04/20/24 17:23 04/20/24 17:28 04/20/24 17:22 Temperature 97.2 F L Pulse Rate 92 H Pulse Rate [Right Brachial] Respiratory Rate 18 18 18 Blood Pressure 141/84 Blood Pressure [Right Arm] O2 Sat by Pulse Oximetry 97 Oxygen Delivery Method Nasal Cannula 04/20/24 17:37 04/20/24 17:42 04/20/24 17:47 Temperature Pulse Rate 72 74 67 Pulse Rate [Right Brachial] Respiratory Rate 18 17 17 Blood Pressure 135/69 129/63 127/62 Blood Pressure [Right Arm] O2 Sat by Pulse Oximetry 100 100 100 Oxygen Delivery Method Nasal Cannula Nasal Cannula Nasal Cannula 04/20/24 17:52 04/20/24 17:27 04/20/24 17:32 Temperature Pulse Rate 64 84 72 Pulse Rate [Right Brachial] Respiratory Rate 17 18 18 Blood Pressure 128/64 140/87 135/80 Blood Pressure [Right Arm] O2 Sat by Pulse Oximetry 100 97 100 Oxygen Delivery Method Nasal Cannula Nasal Cannula Nasal Cannula 04/20/24 19:00 04/20/24 20:09 04/20/24 21:00 Temperature 98.5 F Pulse Rate 50 L Pulse Rate [Right Brachial] Respiratory Rate 17 15 Blood Pressure 131/63 Blood Pressure [Right Arm] O2 Sat by Pulse Oximetry 99 Oxygen Delivery Method Room Air 04/20/24 21:09 04/20/24 18:45 04/20/24 19:00 Temperature 98.2 F 98.2 F Pulse Rate 51 L 50 L Pulse Rate [Right Brachial] Respiratory Rate 18 26 H 23 Blood Pressure 160/80 147/79 Blood Pressure [Right Arm] O2 Sat by Pulse Oximetry 98 98 Oxygen Delivery Method 04/20/24 20:00 04/20/24 22:00 04/21/24 00:00 Temperature 98.4 F 98.3 F 97.8 F Pulse Rate 65 70 64 Pulse Rate [Right Brachial] Respiratory Rate 26 H 25 H 19 Blood Pressure 160/86 122/62 144/65 Blood Pressure [Right Arm] O2 Sat by Pulse Oximetry 100 99 98 Oxygen Delivery Method 04/20/24 23:00 04/21/24 01:46 04/21/24 04:00 Temperature 98.1 F Pulse Rate 52 L 51 L Pulse Rate [Right Brachial] Respiratory Rate 12 28 H 21 Blood Pressure 135/65 149/71 Blood Pressure [Right Arm] O2 Sat by Pulse Oximetry 98 100 Oxygen Delivery Method 04/21/24 02:16 04/21/24 07:28 04/21/24 07:00 Temperature Pulse Rate 65 Pulse Rate [Right Brachial] Respiratory Rate 24 31 H Blood Pressure Blood Pressure [Right Arm] O2 Sat by Pulse Oximetry 100 Oxygen Delivery Method Room Air 04/21/24 07:25 04/21/24 07:25 04/21/24 08:00 Temperature 98.4 F Pulse Rate 57 L 67 Pulse Rate [Right Brachial] Respiratory Rate 29 H 28 H Blood Pressure 145/70 Blood Pressure [Right Arm] O2 Sat by Pulse Oximetry 98 99 Oxygen Delivery Method Room Air 04/21/24 11:11 04/21/24 08:54 04/21/24 08:54 Temperature Pulse Rate 58 L Pulse Rate [Right Brachial] Respiratory Rate 25 H 23 Blood Pressure 157/66 Blood Pressure [Right Arm] O2 Sat by Pulse Oximetry 99 Oxygen Delivery Method 04/21/24 09:00 Temperature Pulse Rate 53 L Pulse Rate [Right Brachial] Respiratory Rate 27 H Blood Pressure Blood Pressure [Right Arm] O2 Sat by Pulse Oximetry 99 Oxygen Delivery Method Labs: Laboratory Last Values WBC 8.1 X10^3/uL (3.6-10.0) 04/21/24 08:00 RBC 4.76 X10^6/uL (3.5-5.4) 04/21/24 08:00 Hgb 10.9 g/dL (12.0-16.0) L 04/21/24 08:00 Hct 34.3 % (36.0-47.0) L 04/21/24 08:00 MCV 72.2 fL (80.0-100.0) L 04/21/24 08:00 MCH 22.9 pg (27.0-34.0) L 04/21/24 08:00 MCHC 31.7 g/dL (33.0-35.0) L 04/21/24 08:00 RDW 17.2 % (11.6-16.5) H 04/21/24 08:00 Plt Count 235 X10^3/uL (150.0-450.0) 04/21/24 08:00 Plt Count Comment Adequate (ADEQUATE) 04/21/24 08:00 MPV 9.0 fL (7.4-11.0) 04/21/24 08:00 Neut % (Auto) 68.7 % (42.0-75.0) 04/21/24 08:00 Lymph % (Auto) 24.4 % (21.0-51.0) 04/21/24 08:00 Toombs % (Auto) 4.0 % (0.0-13.0) 04/21/24 08:00 Eos % (Auto) 1.4 % (0.9-2.9) 04/21/24 08:00 Baso % (Auto) 1.5 % (0.2-1.0) H 04/21/24 08:00 Neut # (Auto) 5.6 x10^3/uL (2.2-4.8) H 04/21/24 08:00 Lymph # (Auto) 2.0 X10^3/uL (1.3-2.9) 04/21/24 08:00 [place]bs # (Auto) 0.3 x10^3/uL (0.3-0.8) 04/21/24 08:00 Eos # (Auto) 0.1 x10^3/uL (0.0-0.2) 04/21/24 08:00 Baso # (Auto) 0.1 X10^3/uL (0.0-0.1) 04/21/24 08:00 Absolute Nucleated RBC 0.0 /100WBC 04/21/24 08:00 Plt Morphology Comment Normal (NORMAL) 04/21/24 08:00 RBC Morphology Abnormal (NORMAL) A 04/21/24 08:00 Hypochromasia 1+ A 04/21/24 08:00 Anisocytosis Slight A 04/21/24 08:00 Microcytosis Slight A 04/21/24 08:00 Sodium 142 mmol/L (136-145) 04/21/24 08:00 Corrected Sodium TNP 04/21/24 08:00 Potassium 4.2 mmol/L (3.5-5.1) 04/21/24 08:00 Chloride 105 mmol/L (98-107) 04/21/24 08:00 Carbon Dioxide 26.5 mmol/L (21-32) 04/21/24 08:00 BUN 6 mg/dL (7-18) L 04/21/24 08:00 Creatinine 0.84 mg/dL (0.55-1.02) 04/21/24 08:00 Est GFR (MDRD) Af Amer > 60 (>60) 04/21/24 08:00 Est GFR (MDRD) Non-Af > 60 (>60) 04/21/24 08:00 Glucose 92 mg/dL (65-99) 04/21/24 08:00 Calcium 8.3 mg/dL (8.5-10.1) L 04/21/24 08:00 Corrected Calcium 9.1 mg/dL (8.5-10.1) 04/21/24 08:00 Magnesium 2.1 mg/dL (2.0-2.9) 04/20/24 04:03 Total Bilirubin 2.10 mg/dL (0.2-1.0) H 04/21/24 08:00 AST 331 Units/L (15-37) H 04/21/24 08:00 ALT 548 Units/L (12-78) H 04/21/24 08:00 Alkaline Phosphatase 181 Units/L (46-116) H 04/21/24 08:00 Total Protein 6.4 g/dL (6.4-8.2) 04/21/24 08:00 Albumin 3.0 g/dL (3.4-5.0) L 04/21/24 08:00 Globulin 3.4 g/dL (2.5-4.5) 04/21/24 08:00 Albumin/Globulin Ratio 0.9 Ratio (1.1-2.1) L 04/21/24 08:00 Amylase 16 Units/L (25-115) L 04/19/24 19:42 Lipase 19 Units/L (16-77) 04/19/24 19:42 HCG, Qual Negative <10 mIU/mL 04/19/24 19:42 Specimen Type Clean catch urine 04/19/24 19:40 Urine Color Nubia (YELLOW) 04/19/24 19:40 Urine Appearance Hazy (CLEAR) 04/19/24 19:40 Urine pH 7.0 (5.0 - 8.0) 04/19/24 19:40 Ur Specific [place] 1.010 (1.000-1.030) 04/19/24 19:40 Urine Protein 2+ (NEGATIVE) 04/19/24 19:40 Urine Glucose (UA) Negative (NEGATIVE) 04/19/24 19:40 Urine Ketones 1+ (NEGATIVE) 04/19/24 19:40 Urine Blood Negative (NEGATIVE) 04/19/24 19:40 Urine Nitrite Negative (NEGATIVE) 04/19/24 19:40 Urine Bilirubin 2+ (NEGATIVE) 04/19/24 19:40 Urine Urobilinogen 2+ (NORMAL) 04/19/24 19:40 Ur Leukocyte Esterase 2+ (NEGATIVE) 04/19/24 19:40 Urine RBC 0-2 /HPF (0-3) 04/19/24 19:40 Urine WBC 10-20 /HPF (0-5) A 04/19/24 19:40 Ur Squamous Epith Cells Numerous /HPF (NEGATIVE) 04/19/24 19:40 Urine Bacteria 3+ /HPF (NEGATIVE) 04/19/24 19:40 Urine Mucus Numerous /HPF (NEGATIVE) 04/19/24 19:40 Ur Culture Indicated? No/not indicated 04/19/24 19:40 Reason For Visit: ABD PAIN, N/V, CHOLELITHIASIS, SPLENOMEGALY Discharge Date Discharge Date: 04/21/24 Discharge Diagnosis All Active Problems (Updated 04/20/24 @ 15:20 by Laureano Spangler) Cholelithiasis (Acute) Elevated LFTs (Acute) Total bilirubin, elevated (Acute) Nausea & vomiting (Acute) Essential (primary) hypertension (Acute) GERD (gastroesophageal reflux disease) (Acute) Hypothyroid (Acute) Acute epigastric pain (Acute) Splenomegaly (Acute) Plan of Treatment: Continue with present treatment and follow up plan. Pt is to keep follow up appointment as instructed and take medications as ordered. Discharge Medications Discharge Medications: No Known Allergies Allergy (Verified 04/19/24 21:33) CONTINUE taking the following medications escitalopram oxalate 10 mg tablet 10 mg PO QDAY 04/19/24 [History] labetalol 100 mg tablet 100 mg PO QDAY 04/19/24 [History] levothyroxine 50 mcg tablet 50 mcg PO QDAY 04/19/24 [History] montelukast 10 mg tablet 10 mg PO QDAY 04/19/24 [History] Cipro 500 mg , 1 po BID Percocet 5mg, 1 po q 6 hr PRN pain Discharge Disposition Assessment: see hospital course Discharge Plan Discharge Plan Hospital Course: This 28 year old female has had persistent right upper quadrant pain with nausea and vomiting for over 7 months since the of her last child. She has had evaluation in [place], [place] including ultrasound and HIDA scan which were reported by the patient to be negative. She presented to our emergency room and CT scan was consistent with cholelithisis and inflammation of the gallbladder. At that time she had elevation of bilirubin to m 3.6 but there was no ductal dilatation on the CT scan. 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 Gallbaladder was removed. cholangiogram showed questionable filling defect of the distal common bile duct with no emptying of contrast into the bowel. However her bilrubin has continued to decline and is now 2.1 . She is taking a regular diet and will be discharged at home at this time with a Yazan Yeh drain in place on , Ciiprofloxacin 500 milligrams BID d and Percocet 5 milligram tablets, 1 every 6 hours PRN pain She Will undergo MRCP on Tuesday the and see me in follow-up. Depending on the results of the MRCP she he will be referred appropriately to gastroenterologu if necessary. Patient Disposition: 01 HOME, SELF-CARE Condition: Stable Health Concerns: Post Hospitalization: new medications and changes needed to prevent readmission or further decline. Pt educated and given instructions on all concerns. Care Plan Goals: Problem: Pain/Alteration in Comfort Goal: Improve/ Resolve Pain; Achieve Pain Tolerance Instructions: Take pain medications as prescribed. Contact your primary care provider if your pain is unrelieved or worsens. Follow up with primary care provider as directed. Plan of Treatment: Continue with present treatment and follow up plan. Pt is to keep follow up appointment as instructed and take medications as ordered. Assessment: see hospital course Prescription drug monitoring program results: PDMP reviewed and no concerns identified Prescriptions: New ciprofloxacin HCl [Cipro] 500 mg tablet 500 mg PO BID Qty: 14 0RF oxycodone-acetaminophen [Percocet] 5-325 mg tablet 1 tab PO Q6H MDD 4 PRNQty: 30 0RF Continued levothyroxine 50 mcg tablet 50 mcg PO QDAY montelukast 10 mg tablet 10 mg PO QDAY labetalol 100 mg tablet 100 mg PO QDAY escitalopram oxalate 10 mg tablet 10 mg PO QDAY Orders to Discharge Patient Discharge Orders: Discharge (Routine); Ordered 04/21/24 Ordered By: Laureano Spangler Follow ups/Referrals Follow ups/Referrals: Laureano Spangler [STAFF PHYSICIAN] - 1 WEEK Instructions Instructions: Laparoscopic Cholecystectomy, Care After, Laparoscopic Cholecystectomy, Eating Plan for Dumping Syndrome, Nausea and Vomiting, Adult, [id number], Gallbladder Eating Plan, Dumping Syndrome Stand Alone Forms: Excuse From Work or School, Post Hospital Follow Up Care
--- NOTE | 2024-04-22 00:18 | DR.OPNOTE ---
OP NOTE Pre-Op Diagnosis: cholelithiasis and cholecystitis, possible choledocholithiasis Post-Op Diagnosis: same Procedure Date Date Of Procedure: 04/20/24 Procedure: PROCEDURE: LAPAROSCOPIC CHOLECYSTECTOMY AND CHOLANGIOGRAM NARRARTIVE : The patient was taken to the operative suite and placed in the Supine position. Generall endotracheal anesthesia was induced. The entire abdomen prepped and draped in sterile fashion. Patient was placed in reverse Trendelenburg position and rolled to the left. Time out for the procedure obtained . Curvilinear 3cm incision made below the umbilicus in the midline and dissection carried down to the midline fascia. MIdline facscia had holding sutures of 0 vicryl placed on either side of the midline. The fascia opened vertically with a 15 knife blade. The peritoneum was opened with Metzenbaum scissors and the abdominal cavity entered. Dot cannula placed through this opening and held in position with the holding sutures. The abdomen insufflated to 15 mm of mercury with carbon dioxide. Under direct vision two 5 mm trocars placed along the right costal margin. A 5 mm trocar placed in the epigastrium. This was more difficult thatn usual due to her morbid obesity with BMI greater than 50. The gallbladder was identified and was consistent with inflammation. The gallbladder was grapsed at the fundus and infundibulum and dissection carried out in Calot's triangle identifying the cystic duct and cystic artery , i.e. the critical view of safety . Cystic artery were clipped proximally and distally and divided. Clip placed proximallyn the cystic duct and the cystic duct open with Metzenbaum scissors. A Barrington was placed into the cystic duct and the balloon inflated and cholangiogram peformed and the common duct oppacified. There was no good emptying of the dye into the distal bowel. There was a possible stone here. Patient given 1 milligram of IV glucagon and after 5 minutes repeat cholangiogram performed and there was no filling into the bowel.At this point the peritoneum of the gallbladder incised with electrocautery to remove the gallbladder from the liver bed. The gallbladder removed through the infra umbilical port. The Dot cannula was replaced. Abdomen irrigated and suctioned free. Hemostasis obtained with electrocautery where necessary. A flat number #10 Yazan Yeh drain was placed in [facility] and brought out through the right lateral-most 5 millimeter trocar site . Surgicel placed in the liver bed where the gallbladder has been removed. All trocars removed. The fascia of the initial incision closed with interrupted 0 Vicryl suture . All laparoscopic incisions then closed with 3-0 Vicryl sutures in the subcutaneous fascia in interrupted fashion. The skin closed with strei strips Each incision was injected with 0.5% Marcaine. The pa tient was extubated and taken to PACU in good condition . Type of Anesthesia: General Anesthetic w/ETT Findings: Distended gallbladder with stones and inflammation, cholangiogram showed no emptying into the small bowel. Type of Fluids Used:: Lactated Ringers EBL: < 100cc Drains/Tubes Placed: Yazan Yeh (#10 flat) Complications:: none Needle/Sponge Count:: correct Disposition/Condition: Pt. tolerated procedure without difficulty. Extubated in the OR and taken to PACU in stable condition.
== END 2024-04-21 13:15 | disposition home or self-care (01) ==
LOC: ER 18:05 → ICU 18:05
PROVIDERS: ADMIT Surgery; ATTEND Surgery